=== PATIENT | female | born 1950 | race Caucasian/White ===

== ENCOUNTER 2019-06-13 12:55 | Outpatient (CLI) | payer MEDICARE, BC ==
--- NOTE | 2019-06-14 16:28 | XRAY Report ---
Reason: ACUTE BRONCHITIS Procedure Date: 06/13/2019 Accession Number: [id number] / [id number] Procedure: XRS - Chest 2 View X-Ray CPT Code: 81595 Final Report FULL RESULT: EXAM: CHEST RADIOGRAPHY EXAM DATE: 06/13/2019 01:04 PM. CLINICAL HISTORY: ACUTE BRONCHITIS. COMPARISON: None. TECHNIQUE: 2 views. FINDINGS: Lungs/Pleura: Large lung volumes. Left basilar atelectasis or infiltrate. Bronchial wall thickening. No pleural effusion. No pneumothorax. Mediastinum: Heart and mediastinal contours are unremarkable. Other: None. IMPRESSION: 1. Large lung volumes. 2. Bronchial wall thickening. This can be seen with bronchitis or reactive airways disease. 3. Posterior left basilar atelectasis or infiltrate. Pneumonia not excluded. [facility]
== END 2019-06-13 12:56 | disposition home or self-care (01) ==
LOC: DI.S 12:55
PROVIDERS: ATTEND Nurse Practitioner Family
DX: J20.9 Acute bronchitis, unspecified (principal); R91.8 Other nonspecific abnormal finding of lung field
CPT/HCPCS: 71046